=== PATIENT | male | born 2005 ===

== ENCOUNTER 2024-02-05 17:36 | Emergency (ER) | payer SELFPAY ==
[~2024-02-05] VITALS: Ht 172.7 cm; Wt 110.0 kg
[2024-02-05 17:40] VITALS: O2SAT 95
[2024-02-05] MEDS: LACTATED RINGERS 1,000 ML IV SCH (18:04)
[2024-02-05] MEDS: ONDANSETRON HCL 4MG/2ML INJ IV ONE (18:04)
[2024-02-05 19:05] LABS: BASOPHILS % 0.7 % (0.0-2.0); EOSINOPHILS % 1.1 % (0.0-5.0); HEMATOCRIT. 44.1 % (42.0-52.0); HEMOGLOBIN. 14.6 g/dL (14.0-18.0); LYMPHOCYTES % 37.5 % (20.0-50.0); MEAN CORPUSCULAR HGB CONC 33.1 g/dL (31.0-37.0); MEAN CORPUSCULAR VOLUME 90.5 fL (80.0-94.0); MEAN PLATELET VOLUME 7.9 fl (7.4-10.4); MONOCYTES % 4.9 % (2.0-8.0); NEUTROPHILS % 55.8 % (40.0-76.0); PLATELET 284 x1000/uL (130-400); RED BLOOD CELL COUNT 4.87 mill/uL (4.7-6.1); RED CELL DISTRIBUTION WIDTH 13.4 % (11.6-14.6); WHITE BLOOD COUNT 7.5 x1000/uL (4.5-11.0)
[2024-02-05 19:13] LABS: CHLORIDE 108 mEq/L (98-107); POTASSIUM 3.3 mEq/L (3.5-5.1); SODIUM 143 mEq/L (136-145)
[2024-02-05 19:14] LABS: CARBON DIOXIDE 25 mEq/L (21-32)
[2024-02-05 19:15] LABS: CALCIUM 8.7 mg/dL (8.7-10.4)
[2024-02-05 19:19] LABS: CREATININE 0.8 mg/dL (0.6-1.3); GLUCOSE 96 mg/dL (70-105)
[2024-02-05 19:20] LABS: ETHANOL BLOOD 300 mg/dL (<10); UREA NITROGEN BLOOD 9 mg/dL (9-23)
[2024-02-05 19:21] LABS: ACETAMINOPHEN < 2 ug/mL (10-30); ALANINE AMINOTRANSFERASE 120 IU/L (10-49); ALBUMIN 4.5 g/dL (3.2-4.8); ASPARTATE AMINOTRANSFERASE 61 IU/L (<34)
[2024-02-05 19:22] LABS: BILIRUBIN TOTAL 0.4 mg/dL (0.1-1.0); PROTEIN TOTAL 7.2 g/dL (6.0-8.3)
[2024-02-05 22:45] VITALS: BP 121/68; PULSE 90; RESP 13; TEMP 98.1
== END 2024-02-05 23:26 | disposition home or self-care (01) ==
LOC: ER 17:43
DX: F10.129 Alcohol abuse with intoxication, unspecified (principal); R79.89 Other specified abnormal findings of blood chemistry; R41.82 Altered mental status, unspecified; Y90.8 Blood alcohol level of 240 mg/100 ml or more
CPT/HCPCS: 80053; 80307; 80329; 80320; 85025; 36415; 71045; 70450; 93005; 96374; 99285; J2405; Z7610 ×2; G0480